=== PATIENT | male | born 1980 | race Caucasian/White ===

== ENCOUNTER 2017-06-04 01:42 | Emergency (ER) | payer OTHER ==
[~2017-06-04] VITALS: Ht 182.9 cm; Wt 149.7 kg
[~2017-06-04 01:42] MED LIST: CLINDAMYCIN HC300 MG PO; KEFLEX500 MG PO; Keflex PO; Lotrimin Cream TP; PERCOCET 5/31 TABLET PO
[2017-06-04] MEDS ORDERED: FIORICET 50-301 EACH PO (04:51)
[2017-06-04 05:05] VITALS: BP 115/85
== END 2017-06-04 05:06 | disposition home or self-care (01) ==
LOC: EME 01:42
DX: G43.909 Migraine, unspecified, not intractable, without status migrainosus (principal); R00.1 Bradycardia, unspecified
CPT/HCPCS: J1100; J1200; J1885; J2765; J7030